=== PATIENT | male | born 1950 | race Caucasian/White ===

== ENCOUNTER 2023-02-15 08:15 | Outpatient (CLI) | payer MEDICARE, OTHER, SELFPAY | END 2023-02-15 08:16 | disposition home or self-care (01) | PROVIDERS: PCP Internal Medicine; Referring Provider Internal Medicine; Visit Provider Internal Medicine | DX: Z00.00 Encounter for general adult medical examination without abnormal findings (principal); E78.5 Hyperlipidemia, unspecified; I10 Essential (primary) hypertension; Z12.5 Encounter for screening for malignant neoplasm of prostate | CPT/HCPCS: 80053; 80061; 84153 ==

== ENCOUNTER 2023-07-12 12:40 | Outpatient (CLI) | payer MEDICARE, OTHER, SELFPAY ==
--- NOTE | 2023-07-12 13:00 | CRLHL7_ITS ---
For Patients: As a result of the Century Cures Act, medical imaging exams and procedure reports are released immediately into your electronic medical record. You may view this report before your referring provider. If you have questions, please contact your health care provider. INDICATION: Foot pain. TECHNIQUE: Short axis T1 and STIR, long axis T1 and STIR and coronal T2 gradient recall left foot sequences. FINDINGS: MRI marker dorsal from the 2nd interspace. No mass or fluid in the interspace. No degenerative or inflammatory change in the metatarsophalangeal joints. There is some degenerative arthrosis subchondral edema, small cysts and sclerosis and minimal osteophytes in the hallux sesamoids. Lateral sesamoid appears bifid. Intrinsic muscle bulk and signal is normal. Visualized plantar fascia is unremarkable. No Janae synovitis of flexor or extensor tendons. 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 Lateral sesamoid is bifid which may be of remote posttraumatic etiology. Dictated by Faisal Do MD @ 07/13/2023 2:12:48 PM (Electronically Signed)
--- OUTSIDE RECORDS SUMMARY | 2023-07-12 14:33 | XMS_ITS | Continuity of Care Document ---
Author Name Unknown Organization [facility] Address [address] [place] [address] Phone Care Team Providers Care Marriage Counselor Name Role Phone Ivan Mcnulty MD Unavailable Unavailable Allergies, Adverse Reactions, Alerts Substance Reaction Status Criticality No Known Allergies Active No Inform ation Medications Medication Instructions Dosage Effective Dates (start - stop) Status Comments Do Not Prescribe meds, calls, appts to be done through [facility] - Active LISINOPRIL (unknown strength) Not Available - Active CLOPIDOGREL (unknown strength) Not Available - Active ROSUVASTATIN CALCIUM (unknown strength) Not Available - Active ASPIR-LOW (unknown strength) Not Available - Active METOPROLOL SUCCINATE (unknown strength) Not Available - Active Procedures Procedure Date Pa Assist Remove Lumbar Spine Lamina, 1 Seg Pa Assist Remove Added Spine Lamina, 1 S eg Remove Lumbar Spine Lamina, 1 Seg Remove Added Spine Lamina, 1 Seg 2017 Office/Outpatient Visit,New, Mod 2017 X-Ray Exam Lwr Spine, Min 4 Views Advance Directives Directive Yes / No Effective Date File Name No Information Encounters Encounter Description Practice Location Reason(s) For Visit Diagnoses Date Provider Providers Copied on Encounter [facility], [address], [place], [id number], [place] tel:[phone] [facility] No Information Sep-2 8 Pricila Love. [facility], [address], [place], [id number] , [place]. tel:[phone] [facility], [address], [place], [id number], [place] tel:[phone] [facility] No Information 8 Jarvis Capo. [facility], [address], [place], [place], [id number] , [place]. tel:[phone] Referring Provider: Brian Smith, [facility] [address], [address], [place], [address]. tel:[phone] [facility], [address], [facility] [place], [id number], [place] tel:[phone] [facility] No Information 8 Pricila Love. [facility], [address] [place] [address] [address], [place], [place], [id number] , [place]. tel:[phone] Referring Provider: Brian Smith, [facility] [address] [place] [address], [address], [place], [address]. tel:[phone] [facility], [address], [facility] [place], [id number], [place] tel:[phone] [facility] No Information 8 Pricila Love. [facility], [address] [place] [address] [address], [place], [place], [id number] , [place]. tel: [phone] Office/Outpat ient Visit,New, [facility], [address], [facility] [place], [id number], [place] tel:[phone] [facility] Spinal stenosis, lumbar region with neurogenic claudication 8 Sarah arceo. [facility], [address], [address], [place], [place], [id number] , [place]. tel:[phone] Referring Provider: Brian Smith, [facility] [address], [address], [place], [address]. [phone] Family History Family Member Type Diagnosis Age At Onset No Information Payers Payer name Insurance type Covered republican ID Authoriza tion(s) Kelliea Medicare Ria [id number] Social History Type Description Quantity Date Captured Comments Sex Male Smoking Status No Information Chief Complaint And Reason For Visit No Information Reason For Referral Reason For Referral No Information Plan Of Treatment Date Type Action Status Future Order: Radiology Order AP -Ljw-Jyin-Ixk Lum (APLatFlExL), Ordered on: Ordered History Of Present Illness Encounter Date Complaint History Of Prese nt Illness No Information Functional Status Date Functional Assessmen t No Information Instructions Date Instruction Additional Infor mation No Information Assessments Type Assessment Date No Information Patient Care Teams Name Effective Dates (start - stop) Status Members No Information
== END 2023-07-12 12:41 | disposition home or self-care (01) ==
LOC: MRI 14:31
PROVIDERS: PCP Internal Medicine; Visit Provider Internal Medicine
DX: M79.672 Pain in left foot (principal); M19.072 Primary osteoarthritis, left ankle and foot
CPT/HCPCS: 73718

== ENCOUNTER 2024-02-21 08:50 | Outpatient (CLI) | payer MEDICARE, SELFPAY ==
--- OUTSIDE RECORDS SUMMARY | 2024-02-29 07:34 | XMS_ITS | Clinical Summary ---
Author Name Unknown Organization [facility] Address [place], [place] [address] Care Team Providers Care Locomotive Firer/Fireman Name Role Phone Fletcher Aguirre MD Primary Care Provider [phone] Allergies No known active allergies Medications Medication Sig Dispensed Refills Start Date End Date Status ASPIRIN 81 MG TAB, DELAYED RELEASE take 1 tablet (81 mg) by oral route once daily 0 09/14/2007 Active metoprolol succinate (TOPROL XL) 50 mg sustained-release tabletIndications:NST JOSEPH (non-ST elevated myocardial infarction) (HC) Take 1 tablet by mouth once daily. 90 tablet 3 08/30/2020 Active nitroglycerin (NITROSTAT) 0.4 mg sublingual tabletIndications:NST JOSEPH (non-ST elevated myocardial infarction) (HC) Place 1 tablet under the tongue every 5 minutes if needed for Chest Pain (first choice for chest pain). 25 tablet 3 08/30/2020 Active rosuvastatin (CRESTOR) 20 mg tabletIndications:NST JOSEPH (non-ST elevated myocardial infarction) (HC) Take 1 tablet by mouth at bedtime. 90 tablet 3 08/30/2020 Active pantoprazole (PROTONIX) 20 mg tablet Take 1 tablet by mouth once daily. 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 09/02/2016 NSTEMI (non-ST elevated myocardial infarction) 1 Quit smoking 09/14/2007 Immunizations Name Administration Dates Next Due Hepatitis B, Unspecified 08/21/1991,02/27/1991,0 01/23/1991 Influenza, IIV3 (Age 6-35 mos) 08/11/2010 Influenza, IIV3 (Age >=3 years) 09/14/2007 Tdap 09/14/2007 Tetanus/Diptheria 10/29/2009 Family History Medical History Relation Name Comments Stroke Brother 2 age 50 Good Health Daughter 2 Hyperlipidemia Father Hypertension Father Other Mother rare vein probl em; borderline diabetes Other Son 2 quadriplegic fo llowing car accident Relation Name Status Comments Brother 1 Alive Brother 2 Daughter 1 Alive Daughter 2 Father Alive Mother (Age 75) Son 1 Alive Son 2 Social History Tobacco Use Types Packs/Day Years Used Date Smoking Tobacco: Former Cigarettes 0.3 30 1 - 08/15/2016 Smokeless Tobacco: Never Tobacco Cessation:Counseling Given: Yes Alcohol Use Standard Drinks/Week Comments Yes 0 (1 standard drink = 0.6 oz pur e alcohol) 2 beers per day Social Connections Answer Date Recorded Frequency of Communication with Friends and Fami ly Not on file 11/15/2021 Financial Resource Strain Answer Date R ecorded Difficulty of Paying Living Expenses Not on file 11/15/2021 Difficulty of Paying Living Expenses Not on file 11/15/2021 Sex and Gender Information Value Date Recorded Sex Assigned at Not on file Gender Identity Not on file Sexual Orientation Not on file Obstetrics History Last Filed Vital Signs Vital Sign Reading Time Taken Comments Blood Pressure 129/83 09/29/2022 2:50 PM BOOT MAKER Pulse 77 09/29/2022 2:50 PM BOOT MAKER Temperature 36.2 ??C (97.2 ??F) 06/21/2018 9:38 AM CD T Respiratory Rate 14 08/30/2020 11:28 AM CDT Oxygen Saturation 95% 09/29/2022 2:50 PM BOOT MAKER Inhaled Oxygen Concentration - - Weight 74.6 kg (164 lb 6.4 oz) 09/29/2022 2:50 P M BOOT MAKER Height 165.1 cm (5' 5) 06/16/2018 1:28 PM CDT Body Mass Index 27.36 06/16/2018 1:28 PM CDT Plan of Treatment Health Maintenance Due Date Last Done Comments Hepatitis C screening for age 18-79 1970 Colonoscopy through age 75 1997 Zoster (shingles) series for age 50+ (1 of 2) 2002 Medicare Wellness for age 65+ 2017 Pneumococcal series for age 65+ (1 of 1 - PCV) 2017 Tetanus booster 09/14/2017 09/14/2007 Depression screening for age 12+ 10/06/2017 10/06/20 16 BMI (ht and wt on same day) for age 18+ 02/11/2019 02/11/2018, 08/27/2017 Lipids for age 45-75 03/11/2023 03/11/2018, 09/03/2016, 09/19/2007 COVID-19 vaccine series ( season) 2023 Influenza for age 65+ 07/16/2024 09/14/2007 Tdap Completed 09/14/2007 Procedures Procedure Name Priority Date/Time Associated Diagnosis Comments LIPID PANEL Routine 03/11/2018 3:53 PM CDT Coronary artery disease involving [place] artery of transplanted heart with unstable angina pectoris (HC) from Last 3 Months or Most Recently Relevant to Health Maintenance Results * (ABNORMAL) LIPID PANEL (03/11/2018 3:53 PM CDT) CHOLESTEROL,TOTAL 145 100 - 199 mg/dL 03/11/2018 9:38 PM CDT [facility] TRIGLYCERIDES 171(H) <150 mg/dL 03/11/2018 9:38 PM CDT [facility] HDL CHOLESTEROL 45 >40 mg/dL 8 9:38 PM CDT [facility] NON-HDL CHOLESTEROL 100 <145 mg/dl 03/11/2018 9:38 PM CDT [facility] CHOL/HDL RATIO 3.22 <4.50 03/11/2018 9:38 PM CDT [facility] [employer] [facility] LDL CHOLESTEROL 66 <=130 mg/dL 03/11/2018 9:38 PM CDT [facility] PROVIDER ORDERED STATUS RANDOM 03/11/2018 9:38 PM CDT [facility] Blood BLOOD SPECIMEN / Unknown Venipuncture / Unknown 03/11/2018 3:53 PM CDT 03/11/2018 3:53 PM CDT Boom Mejia MD CHEMISTRY [facility] [employer] [facility] [address] [place] [address], from Last 3 Months or Most Recently Relevant to Health Maintenance Advance Directives Documents on File Type Date Recorded Patient Set Up And Lay Out Inspector Expl anation Healthcare Directive 06/23/2018 7:15 AM 04-19 * Full Code (Latest Code Status on File) Date Activated Date Inactivated Comments 09/02/2016 6:19 PM 09/04/2016 3:09 PM Care Teams Locomotive Firer/Fireman Relationship Specialty Start Date End Date Fletcher Aguirre MD [address] [place] [address] PCP - General Emergency Medicine 09/21/16
--- OUTSIDE RECORDS SUMMARY | 2024-02-29 07:34 | XMS_ITS | Clinical Summary ---
Author Name Unknown Organization [facility] Address [address] [place] [address] Care Team Providers Care Cork Compounder Name Role Phone Fletcher Aguirre MD Primary Care Provider [phone] Source Comments You are receiving this document as you are listed as the primary care provider,follow-up provider, or the patient has been referred to you for consultation.This is in compliance with the Medicare and[facility] EHR Incentive Program,which states Providers who transition their patient to another setting of careor provider of care or refers their patient to another provider of care shouldprovide summary care record for each transition of care or referral. [employer] Allergies No known active allergies Medications Medication Sig Dispensed Refills Start Date End Date Status aspirin EC 81 MG enteric coated tablet Take 81 mg by mouth daily (every 24 hours). 04/27/2013 Active lisinopril (ZESTRIL) 2.5 MG tablet Take 2.5 mg by mouth. 09/07/2016 Act kate metoprolol succinate (TOPROL XL) 50 MG 24 hour release tablet Pt currently taking 25 mg in AM & 50 mg in evenings due to lightheadedness 12/17/17 12/17/2017 Active clopidogrel (PLAVIX) 75 MG tablet Take 75 mg by mouth. 09/04/2016 Acti ve rosuvastatin (CRESTOR) 10 MG tablet 20 mg. 12/07/2017 Active nitroglycerin (NITROSTAT) 0.[address] 0.4 mg under tongue. 09/04/2016 Active pantoprazole (PROTONIX) 20 MG tablet 02/23/2018 Active tiZANidine (ZANAFLEX) 2 MG tablet Take 1 Tablet by mouth every 6 hours as needed. 20 Tablet 06/24/2018 Active predniSONE (DELTASONE) 20 MG tablet Take 1 tablet twice per day x5days, take 1 tablet daily x5days 15 Tablet 07/11/2018 Active Active Problems No known active problems Social History Tobacco Use Types Packs/Day Years Used Date Smoking Tobacco: Former Cigarettes Smokeless Tobacco: Never Alcohol Use Standard Drinks/Week Comments Yes 1 (1 standard drink = 0.6 oz pur e alcohol) 4 times per week Sex and Gender Information Value Date Recorded Sex Assigned at Not on file Gender Identity Not on file Sexual Orientation Not on file Last Filed Vital Signs Vital Sign Reading Time Taken Comments Blood Pressure 124/80 03/25/2018 1:20 PM CDT Pulse - - Temperature - - Respiratory Rate - - Oxygen Saturation - - Inhaled Oxygen Concentration - - Weight 74.8 kg (165 lb) 05/04/2018 9:54 AM CDT Height 170.2 cm (5' 7) 05/04/2018 9:54 AM CDT Body Mass Index 25.84 05/04/2018 9:54 AM CDT Plan of Treatment Health Maintenance Due Date Last Done Comments Colon Cancer Screening Plan Due 1950 Hep C Screening (Preventive Services) 1950 Medicare Annual Wellness Visit 1950 Cholesterol 1987 COVID-19 Vaccine (2022- season) 2023 03/12/2023, 07/30/2022, 02/25/2022, Additional history exists Influenza (#1) 2023 08/19/2022, 10/0 06/2021, 08/19/2020, Additional history exists DTaP/Tdap/Td (5 - Tdap) 03/20/2031 03/20/20 21, 10/29/2009, 10/29/2009, Additional history exists Pneumococcal 65+ Yrs Completed 12/13/2019, 12/07/19 19 Zoster/Shingles Completed 04/26/2023, 02/16/2023 HepA Aged Out No longer eligi ble based on patient's age to complete this topic HepB Aged Out No longer eligi ble based on patient's age to complete this topic Hib Aged Out No longer eligi ble based on patient's age to complete this topic IPV (Polio) Aged Out No longer eligi ble based on patient's age to complete this topic MCV4 Aged Out No longer eligi ble based on patient's age to complete this topic Care Teams Cork Compounder Relationship Specialty Start Date End Date Fletcher Aguirre MD [address] [place] [address] PCP - General 04/18/13
--- OUTSIDE RECORDS SUMMARY | 2024-02-29 07:34 | XMS_ITS | Continuity of Care Document ---
Author Name Unknown Organization [facility] Address [address] [place] [address] Phone Care Team Providers Care Barrel Assembler Helper Name Role Phone Ivan Mcnulty MD Unavailable Unavailable Allergies, Adverse Reactions, Alerts Substance Reaction Status Criticality No Known Allergies Active No Inform ation Medications Medication Instructions Dosage Effective Dates (start - stop) Status Comments Do Not Prescribe meds, calls, appts to be done through [facility] - Active METOPROLOL SUCCINATE (unknown strength) Not Available - Active ASPIR-LOW (unknown strength) Not Available - Active ROSUVASTATIN CALCIUM (unknown strength) Not Available - Active CLOPIDOGREL (unknown strength) Not Available - Active LISINOPRIL (unknown strength) Not Available - Active Procedures [...] Copied on Encounter [facility], [address], [place], [id number], [place] tel:[phone] [facility] No Information Sep-2 8 Pricila Love. [facility], [address], [place], [id number] , [place]. tel:[phone] [facility], [address], [place], [id number], [place] tel:[phone] [facility] No Information 8 Jarvis Capo. [facility], [address], [place], [place], [address] , [place]. tel:[phone] Referring Provider: Brian Smith, [facility] [address], [address], [place], [address]. tel:[phone] [facility], [address], [facility] [place], [id number], [place] tel:[phone] [facility] No Information 8 Pricila Love. [facility], [address] [place] [address] [address], [place], [place], [address] , [place]. tel:[phone] Referring Provider: Brian Smith, [facility] [address] [place] [address], [address], [place], [address]. tel:[phone] [facility], [address], [facility] [place], [id number], [place] tel:[phone] [facility] No Information 8 Pricila Love. [facility], [address] [place] [address] [address], [place], [place], [id number] , [place]. tel: [phone] Office/Outpat ient Visit,[place], [facility], [address], [facility] [place], [id number], [place] tel:[phone] [facility] Spinal stenosis, lumbar region with neurogenic claudication 8 Sarah arceo. [facility], [address], [address], [place], [place], [id number] , [place]. tel:[phone] Referring Provider: Brian Smith, [facility] [address], [address], [place], [address]. [phone] Family History Family Member Type Diagnosis Age At Onset No Information Payers Payer name Insurance type Covered alliance party ID Authoriza tion(s) Kelliea Medicare Ria [id number] Social History Type Description Quantity Date Captured Comments Sex Male Smoking Status No Information Chief Complaint And Reason For Visit No Information Reason For Referral Reason For Referral No Information Plan Of Treatment Date Type Action Status Future Order: Radiology Order AP -Tho-Gqoy-Nva Lum (APLatFlExL), Ordered on: Ordered History Of Present Illness Encounter Date Complaint History Of Prese nt Illness No Information Functional Status Date Functional Assessmen t No Information Instructions Date Instruction Additional Infor mation No Information Assessments Type Assessment Date No Information Patient Care Teams Name Effective Dates (start - stop) Status Members No Information
== END 2024-02-21 08:51 | disposition home or self-care (01) ==
LOC: NFLDREF 02-29 07:32
PROVIDERS: PCP Internal Medicine; Referring Provider Internal Medicine; Visit Provider Internal Medicine
DX: I10 Essential (primary) hypertension (principal); E78.5 Hyperlipidemia, unspecified; Z12.5 Encounter for screening for malignant neoplasm of prostate
CPT/HCPCS: 80053; 80061; G0103

== ENCOUNTER 2025-02-23 07:48 | Outpatient (CLI) | payer MEDICARE, OTHER, SELFPAY | END 2025-02-23 07:49 | disposition home or self-care (01) | LOC: NFLDREF 02-27 00:25 | PROVIDERS: PCP Internal Medicine; Referring Provider Internal Medicine; Visit Provider Internal Medicine | DX: E78.5 Hyperlipidemia, unspecified (principal); I10 Essential (primary) hypertension; Z12.5 Encounter for screening for malignant neoplasm of prostate | CPT/HCPCS: 80053; 80061; G0103 ==

== ENCOUNTER 2025-07-25 10:46 | Outpatient (CLI) | payer MEDICARE, OTHER, SELFPAY ==
--- NOTE | 2025-07-25 11:00 | CRLHL7_ITS ---
For Patients: As a result of the Century Cures Act, medical imaging exams and procedure reports are released immediately into your electronic medical record. You may view this report before your referring provider. If you have questions, please contact your health care provider. Indication: SOB, COUGH, CONGESTION X 1 MONTH. Technique: CT Chest 75CC ISOVUE 370 intravenous contrast Please note that all CT scans at this facility use dose modulation, iterative reconstruction, and/or weight-based dosing when appropriate to reduce radiation dose to as low as reasonably achievable. Comparison: None Findings: 5.8 mm calcified nodule right lower lobe. Mild peripheral reticular thickening right lower lobe. The upper abdomen is unremarkable. No enlarged intrathoracic lymph nodes. The left thyroid lobe is diminutive or absent. Mild bilateral subareolar gynecomastia. No infiltrate or edema. No effusion or pneumothorax. No fracture. Faintly calcified right-sided mediastinal lymph node. Impression: Sequela of granulomatous disease with calcified mediastinal lymph node and right lower lobe calcified granuloma. Mild pulmonary fibrosis. No infiltrate. Please note that all CT scans at this facility use dose modulation, iterative reconstruction, and/or weight-based dosing when appropriate to reduce radiation dose to as low as reasonably achievable. Dictated by Earl Grant MD @ 07/26/2025 8:46:58 AM (Electronically Signed)
[2025-07-25 11:25] LABS: Creatinine* 1.2 mg/dL (0.5-1.5); Estimated Glomerular Filt Rate 64 ml/min
== END 2025-07-25 10:47 | disposition home or self-care (01) ==
LOC: CT 10:47
PROVIDERS: PCP Internal Medicine; Visit Provider Internal Medicine
DX: R06.02 Shortness of breath (principal); J84.10 Pulmonary fibrosis, unspecified
CPT/HCPCS: 36415; 71260; 82565; Q9967